=== PATIENT | male | born 1990 | race Caucasian/White ===

== ENCOUNTER 2016-08-11 12:45 | Emergency (ER) | payer MEDICAID ==
[~2016-08-11] VITALS: Ht 180.3 cm; Wt 83.9 kg
[2016-08-11] MEDS ORDERED: NKM (12:58)
[2016-08-11] MEDS: Ketorolac 60mg Inj IM ONE ×2 (13:34→13:57)
--- NOTE | 2016-08-11 13:37 | Emergency Room Report ---
History of Present Illness General Chief Complaint: Chest Pain Source: Patient Present Illness HPI 26 YOM with chest wall pain for 2 months. Pain only when "I push on my chest." Denies trauma. Denies pain on exertion, denies pain with breathing, cough, fever/chills. + smoker. Denies history of HTN, DM, HLD, drug use, or family history of CAD. Allergies: Coded Allergies: No Known Allergies (Unverified , 08/11/16) Patient History Past Medical History: none Past Surgical History: none Pertinent Family History: none Social History: Reports: smoking Immunizations: UTD Reviewed Nursing Documentation: PMH: Agreed, PSxH: Agreed Nursing Documentation-PMH Past Medical History: No History, Except For Hx Asthma: Yes Review of Systems All Other Systems: negative except mentioned in HPI Physical Exam Vital Signs Date Time Temp Pulse Resp B/P Pulse Ox O2 Delivery O2 Flow Rate FiO2 08/11/16 12:54 98.1 79 18 139/80 96 Room Air Sp02 EP Interpretation: reviewed, normal General Appearance: normal inspection, well appearing, no apparent distress, alert, GCS 15, non-toxic Head: normocephalic, atraumatic Eyes: bilateral eye EOMI, bilateral eye PERRL ENT: normal ENT inspection, hearing grossly normal, normal voice Neck: normal inspection, full range of motion, supple, no bony tend Respiratory: normal inspection, lungs clear, normal breath sounds, no respiratory distress, no retraction, no wheezing, other - Palpation of chest reproduces pain, chest symmetrical Cardiovascular #1: regular rate, rhythm, no edema Gastrointestinal: normal inspection, normal bowel sounds, non tender, soft, no guarding, no hernia Genitourinary: no CVA tenderness Musculoskeletal: normal inspection, back normal, normal range of motion, Daniel' s Sign negative Neurologic: normal inspection, alert, oriented x3, responsive, failure analysis technician III-XII nml as tested, motor strength/tone normal, speech normal Psychiatric: normal inspection, judgement/insight normal, mood/affect normal Skin: normal inspection Lymphatic: normal inspection Medical Decision Making Diagnostic Impression: Primary Impression: Chest pain Qualified Codes: R07.9 - Chest pain, unspecified ER Course ECG is NSR. No ischemia CXR negative for PTX, cardiomegaly, mass Improved with Toradol IM Low suspicion for AMI given duration, reproducibility, pain only palpation Low suspicion for PE as is PERC negative Likely MSK Rx Ibuprofen PMD followup DC home EKG Diagnostic Results Rate: normal Rhythm: NSR ST Segments: no acute changes ASA given to the pt in ED: No Rhythm Strip Diag. Results EP Interpretation: yes Rate: 66 Rhythm: NSR, no ectopy Chest X-Ray Diagnostic Results EP Interpretation: Yes Findings: no consolidation, no effusion, no pneumothorax, no acute cardiopulmonary disease Number of Views: 1 Last Vital Signs Date Time Temp Pulse Resp B/P Pulse Ox O2 Delivery O2 Flow Rate FiO2 08/11/16 13:21 69 16 Room Air 08/11/16 12:54 98.1 139/80 96 Status: improved Disposition: HOME, SELF-CARE Condition: Improved Patient Instructions: Nonspecific Chest Pain Additional Instructions: - You can try over the counter ibuprofen or tylenol for pain - Try applying heat or ice to area of pain to reduce spasm - Follow up with primary care doctor as needed CORAZON MONDRAGON M.D. Aug 11, 2016 13:37
[2016-08-11 14:45] VITALS: BP 133/77
--- NOTE | 2016-08-11 14:45 | Diagnostic Imaging Report ---
Indication: Chest pain Technique: One view of the chest Comparison: none Findings: Lungs and pleural spaces are clear. Heart size is normal. No evidence of pneumothorax Impression: No acute process
--- NOTE | 2016-08-16 18:28 | Cardiology Report ---
APPROVED REPORT EKG Measurement Heart [id number] CT 140P69 [id number] Normal sinus rhythm Possible Lateral infarct, age undetermined Abnormal ECG
== END 2016-08-11 14:45 | disposition home or self-care (01) ==
LOC: EMR 13:50
DX: R07.9 Chest pain, unspecified (principal); F17.200 Nicotine dependence, unspecified, uncomplicated; J45.909 Unspecified asthma, uncomplicated
CPT/HCPCS: 71010; 93005; 96372; 99283

== ENCOUNTER 2017-04-04 16:47 | Emergency (ER) | payer MEDICAID ==
[~2017-04-04] VITALS: Ht 172.7 cm; Wt 74.8 kg
[~2017-04-04 16:47] MED LIST: NKM
--- NOTE | 2017-04-04 17:05 | Emergency Room Report ---
History of Present Illness General Chief Complaint: Pain Source: Patient (Lien George) Present Illness HPI 27 YO male presents to the ED c/o Left ankle pain 3/10 in severity after kicking another persons foot. pt reports pain is exacerbated upon weight bearing /walking, reports some lateral tenderness, denies swelling at this time : states acute swelling at onset of injury that has resolved. Denies bruising, erythema or increased temperature to palpation, denies open wounds or bleeding. Denies numbness tingling or loss of sensation or gross motor movements of the extremities, incontinence of bowel or bladder. Denies CP, Palpitations, LOC, AMS , dizziness, Changes in Vision, Sensation, paresthesias, or a sudden severe headache. (Lien George) Allergies: Coded Allergies: No Known Allergies (Unverified , 08/11/16) Patient History Past Medical History: see triage record Past Surgical History: none Pertinent Family History: none Immunizations: UTD Reviewed Nursing Documentation: PMH: Agreed, PSxH: Agreed (Lien George) Nursing Documentation-PMH Hx Cardiac Problems: No Hx Hypertension: No Hx Pacemaker: No Hx Asthma: No Hx COPD: No Hx Diabetes: No Hx Cancer: No Hx Gastrointestinal Problems: No Hx Dialysis: No History Of Psychiatric Problem: No Hx Neurological Problems: No Hx Cerebrovascular Accident: No Hx Seizures: No (Lien George) Review of Systems All Other Systems: negative except mentioned in HPI (Lien George) Physical Exam Vital Signs Date Time Temp Pulse Resp B/P (MAP) Pulse Ox O2 Delivery O2 Flow Rate FiO2 04/04/17 16:50 98.8 82 18 138/64 97 Room Air Sp02 EP Interpretation: reviewed, normal General Appearance: no apparent distress, alert, GCS 15, non-toxic Head: normocephalic, atraumatic Eyes: bilateral eye normal inspection, bilateral eye PERRL ENT: hearing grossly normal, normal voice Neck: full range of motion Respiratory: lungs clear, normal breath sounds, speaking full sentences Cardiovascular #1: regular rate, rhythm, normal capillary refill Cardiovascular #2: 2+ dorsalis pedis (R), 2+ dorsalis pedis (L) Rectal: deferred Genitourinary: normal inspection, no CVA tenderness Musculoskeletal: back normal, normal range of motion, no calf tenderness, tender - lateral ttp to the left ankle, no swelling, no erythema, no bruises or obvious deformity, FROM , no instability noted, pt. is NVI. Neurologic: alert, oriented x3, responsive, motor strength/tone normal, sensory intact, speech normal Skin: normal color, no rash, warm/dry, well hydrated (Lien George) Medical Decision Making PA Attestation Dr. Franco is my supervising Physician whom patient management has been discussed with. (Lien George) Diagnostic Impression: Primary Impression: Left ankle sprain Qualified Codes: S93.402A - Sprain of unspecified ligament of left ankle, initial encounter ER Course 27 YO male presents to the ED c/o Left ankle pain 3/10 in severity after kicking another persons foot. pt reports pain is exacerbated upon weight bearing /walking, reports some lateral tenderness, denies swelling at this time : states acute swelling at onset of injury that has resolved. Denies bruising, erythema or increased temperature to palpation, denies open wounds or bleeding. Denies numbness tingling or loss of sensation or gross motor movements of the extremities, incontinence of bowel or bladder. Denies CP, Palpitations, LOC, AMS , dizziness, Changes in Vision, Sensation, paresthesias, or a sudden severe headache. Ddx considered but are not limited to Fracture, dislocation, contusion, Sprain/ Strain/Spasm just to name a few. Vital signs: are WNL, pt. is afebrile H&PE are most consistent with musculoskeletal injury will perform imaging to r/ o fractures/dislocations. ORDERS: - X-ray : Left Ankle: NAD. ED INTERVENTIONS: - Air Splint applied to the Left Ankle by technical assistance consultant. Pt. remains neurovascularly intact. --Patient is provided with crutches and instructed on their use DISCHARGE: At this time pt. is stable for d/c to home. Will provide printed patient care instructions, and any necessary prescriptions. Care plan and follow up instructions have been discussed with the patient prior to discharge. (Lien George.Anabelle) Other X-Ray Diagnostic Results Other X-Ray Diagnostic Results : X-Ray ordered: Left Ankle # of Views/Limited Vs Complete: 3 View Indication: Pain EP Interpretation: No PA Xray: Interpretation reviewed, by supervising MD, and agrees with findings. Interpretation: no dislocation, no soft tissue swelling, no fractures, nonspecific bowel gas Impression: No acute disease Electronically Signed by: Lien George PA-C (Lien George) Other X-Ray Diagnostic Results : Electronically Signed by: Sunita documentation reviewed by me and is accurate, Lucian Franco MD. (Lucian Franco M.D.) Last Vital Signs Date Time Temp Pulse Resp B/P (MAP) Pulse Ox O2 Delivery O2 Flow Rate FiO2 04/04/17 16:50 98.8 82 18 138/64 97 Room Air (Lien George) Disposition: HOME, SELF-CARE Condition: Stable Scripts Ibuprofen* (MOTRIN*) 600 Mg Tablet 600 MG ORAL THREE TIMES A DAY, #20 TAB 0 Refills Prov: Lien George 04/04/17 Patient Instructions: Ankle Sprain Additional Instructions: Take medications as directed. Follow up with a Primary Care Provider in 3-5 days, even if your symptoms have resolved. --Please review list of primary care clinics, if you do not already have a primary care provider Return sooner to ED if new symptoms occur, or current symptoms become worse. - Please note that this Emergency Department Report was dictated using [employer] cutter technology software, occasionally this can lead to erroneous entry secondary to interpretation by the dictation equipment. Lien George Apr 04, 2017 17:05 Lucian Franco M.D. Apr 06, 2017 11:06
[2017-04-04] MEDS ORDERED: IBUPROFEN600 MG ORAL (17:20)
[2017-04-04 17:40] VITALS: BP 141/83
--- NOTE | 2017-04-05 10:33 | Diagnostic Imaging Report ---
Indication: PAIN, status post fall Technique: 3 views of the left ankle Comparison: none Findings: No acute fractures. No dislocations. Joint spaces are preserved. Normal mineralization. No radiopaque foreign body. Impression: Negative This agrees with the preliminary interpretation provided by the emergency room physician
== END 2017-04-04 17:40 | disposition home or self-care (01) ==
LOC: MERGE 17:13 → EMR 17:13
DX: S93.402A Sprain of unspecified ligament of left ankle, initial encounter (principal); W51.XXXA Accidental striking against or bumped into by another person, initial encounter; Y92.89 Other specified places as the place of occurrence of the external cause
CPT/HCPCS: 99283

== ENCOUNTER 2019-06-03 21:45 | Emergency (ER) | payer MEDICAID, OTHER ==
[~2019-06-03] VITALS: Ht 180.3 cm; Wt 93.9 kg
[~2019-06-03 21:45] MED LIST changes: +IBUPROFEN600 MG ORAL
--- NOTE | 2019-06-03 21:59 | NUR ---
ED Nurse Note: Pt ambulated to ED from home, wanting a STD check, pt had unprotected sex 4-5 days ago, c/o yellowish discharge from penis as well as soreness and bumps at the tip of the penis as well as a sore throat. Pt is A&Ox4, VSS
[2019-06-03 22:00] VITALS: BP 140/89
--- NOTE | 2019-06-03 22:12 | Emergency Room Report ---
History of Present Illness General Chief Complaint: Male Urogenital Problems Source: Patient Present Illness HPI Is a 29-year-old male who presents after increased dysuria as well as urethral discharge. He had recent unprotected sexual intercourse. Reports of increased sore throat. Any other locations of discomfort. He denied any urinary hesitancy. Had not been having any hematuria. Denies any testicular pain or swelling. Had not been vomiting or having any fever. Patient states that he had unprotected sex approximately 10 days prior to onset of symptoms. He noticed increased yellow discharge. Allergies: Coded Allergies: No Known Allergies (Unverified , 08/11/16) Patient History Past Medical History: see triage record Reviewed Nursing Documentation: PMH: Agreed; PSxH: Agreed Nursing Documentation-PMH Hx Asthma: Yes Review of Systems All Other Systems: negative except mentioned in HPI Physical Exam Vital Signs Date Time Temp Pulse Resp B/P (MAP) Pulse Ox O2 Delivery O2 Flow Rate FiO2 06/03/19 21:53 98.4 82 16 140/89 (106) 98 General Appearance: well appearing, no apparent distress, alert, GCS 15 Head: normocephalic, atraumatic ENT: hearing grossly normal, normal voice Neck: full range of motion, supple Respiratory: normal inspection, no respiratory distress, speaking full sentences Cardiovascular #1: normal inspection Gastrointestinal: normal inspection Genitourinary: other - urethral swelling and discharge, circumcised Musculoskeletal: normal inspection, no calf tenderness Neurologic: alert, motor strength/tone normal, turbine mechanic III-XII nml as tested, oriented x3, normal gait Psychiatric: mood/affect normal Skin: no rash Medical Decision Making Diagnostic Impression: Primary Impression: Urethritis ER Course Patient presented for dysuria and penile discharge. Differential diagnosis include was not limited to urethritis, Stefan's syndrome, urinary tract infection among others. Patient has a benign exam and does not appear to require any imaging or laboratory testing at this time. Patient appears to have a sexual transmitted infection will be empirically treated for gonorrhea chlamydia. He was advised to have full patient STD testing with his primary care physician or Public health clinic. Patient is given Rocephin as well as doxycycline prescription. Patient is advised to return if any worsening condition or if any changes in status that are concerning. This report is dictated with [employer] punch box tender software which may occasionally lead to discrepancies related to use of this software. He was advised to follow-up with Last Vital Signs Date Time Temp Pulse Resp B/P (MAP) Pulse Ox O2 Delivery O2 Flow Rate FiO2 06/03/19 21:53 98.4 82 16 140/89 (106) 98 Status: improved Disposition: HOME, SELF-CARE Condition: Stable Agustin Young MD Jun 03, 2019 22:12
[2019-06-03] MEDS ORDERED: DOXYCYCLINE MO100 MG ORAL (22:13)
[2019-06-03] MEDS ORDERED: Lidocaine 1% MPF 10mg/ml 5ml INJ ONE (22:15)
[2019-06-03 22:45] VITALS: BP 140/89
--- NOTE | 2019-06-03 22:45 | NUR ---
ER DISCHARGE NOTE: Patient is cleared to be discharged per ERMD, pt is aox4, on room air, with stable vital signs. pt was given dc and prescription instructions, pt was able to verbalize understanding, pt id band removed. pt is able to ambulate with steady gait. pt took all belongings. IM shot tolerated well
== END 2019-06-03 22:45 | disposition home or self-care (01) ==
LOC: EMR 22:08
DX: N34.2 Other urethritis (principal); J45.909 Unspecified asthma, uncomplicated
CPT/HCPCS: 96372; 99283; J0696

== ENCOUNTER 2019-11-29 14:07 | Emergency (ER) | payer OTHER ==
[~2019-11-29] VITALS: Ht 180.3 cm; Wt 81.6 kg
[~2019-11-29 14:07] MED LIST changes: +DOXYCYCLINE MO100 MG ORAL
--- NOTE | 2019-11-29 14:20 | NUR ---
ED Nurse Note: Pt ambulated to ED d/t sore throat started today at 1100. Pt also complains of having dry cough for a few days. Pt also complains of tenderness at the tip of his penis. VSS, on RA, afebrile on triage. Placed at the tent.
[2019-11-29 14:21] VITALS: BP 141/86
--- NOTE | 2019-11-29 14:38 | NUR ---
ED Nurse Note: ERPA at bedside.
[2019-11-29] MEDS ORDERED: Azithromycin 250mg tab ORAL ONE (15:00)
[2019-11-29] MEDS ORDERED: Lidocaine 1% MPF 10mg/ml 5ml INJ ONE (15:00)
--- NOTE | 2019-11-29 15:16 | Emergency Room Report ---
History of Present Illness General Chief Complaint: Sore Throat Source: Patient Present Illness HPI 29-year-old male with no past medical history presents with mild sore throat and dry cough onset last night. Denies any difficulty swallowing, fever, shortness of breath, diarrhea, constipation. He denies any exposure to COVID positive individuals. 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 Patient also reports that he is having some mild irritation to the tip of the penis for 2 days. He had unprotected sex a few days ago with a new female partner. He denies any dysuria, penile discharge, fever, sores, testicular pain. 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 COVID-19 Screening: Negative COVID-19 COVID-19 Testing Source: oropharynx Patient History Past Medical History: see triage record Reviewed Nursing Documentation: PMH: Agreed; PSxH: Agreed Nursing Documentation-PMH Past Medical History: No Stated History Hx Asthma: Yes Review of Systems All Other Systems: negative except mentioned in HPI Physical Exam Vital Signs Date Time Temp Pulse Resp B/P (MAP) Pulse Ox O2 Delivery O2 Flow Rate FiO2 11/29/19 14:20 98.1 110 19 141/86 (104) 97 Room Air Sp02 EP Interpretation: reviewed, normal General Appearance: normal inspection, well appearing, no apparent distress, alert Head: normocephalic, atraumatic ENT: normal pharynx, normal voice, uvula midline Neck: supple, no meningismus Respiratory: lungs clear, normal breath sounds, no respiratory distress Cardiovascular #1: regular rate, rhythm Genitourinary: normal inspection, penis normal, deferred - No abnormalities noted to the penis. No erythema, sore, tenderness, discharge. Medical Decision Making PA Attestation Dr. Cabrera is my supervising physician whom patient management and care has been discussed with. Diagnostic Impression: Primary Impression: Cough Additional Impressions: Screen for STD (sexually transmitted disease) Sore throat ER Course Pt. presents to the ED c/o mild sore throat and dry cough onset last night. No other symptoms or cold exposure. Also complaining of irritation to the tip of the penis for 2 days. Had unprotected sex a few days ago. No dysuria or penile discharge. Ddx considered but are not limited to COVID-19, other viral syndrome, strep pharyngitis, pneumonia, bronchitis, asthma, STDs. Vital signs: are WNL, pt. is afebrile H&PE are most consistent with viral syndrome. ORDERS: Chlamydia and gonorrhea ordered. ED INTERVENTIONS: Treated with Rocephin and azithromycin for chlamydia gonorrhea. DISCHARGE: At this time pt. is stable for d/c to home. Will provide printed patient care instructions, and any necessary prescriptions. Advised to follow up outpatient in 1-2 days. Care plan and follow up instructions have been discussed with the patient prior to discharge. Well-appearing, nontoxic, afebrile, no hypoxia. Lungs are clear. Advised patient that he may possibly have COVID-19 and that he should self isolate at home for 2 weeks and redirected to [facility] for COVID testing. Patient treated for chlamydia and gonorrhea with 250 mg IM Rocephin and 1 g p.o. azithromycin and tested for chlamydia and gonorrhea. Last Vital Signs Date Time Temp Pulse Resp B/P (MAP) Pulse Ox O2 Delivery O2 Flow Rate FiO2 11/29/19 14:21 98.1 19 141/86 97 Room Air 11/29/19 14:20 110 Disposition: HOME, SELF-CARE Condition: Stable Patient Instructions: Cough, Adult, [id number], Sexually Transmitted Disease , [id number] Additional Instructions: Take medications as directed. Do not expect a call regarding your STD test results. You can go to medical records in 4-5 days for results. Make an appointment with [facility] if you would like COVID testing. Since you are displaying cough and sore throat, you should isolate at home for 2 weeks or for at least 3 days after you are still having symptoms. Follow up with a Primary Care Provider in 1-2 days, even if your symptoms have resolved. --Please review list of primary care clinics, if you do not already have a primary care provider Return to the emergency department sooner if new symptoms occur, or current symptoms become worse. - Please note that this Emergency Department Report was dictated using [employer] department chair technology software, occasionally this can lead to erroneous entry secondary to interpretation by the dictation equipment. Dagmar Archuleta 8, 2020 15:16
[2019-11-29 15:17] VITALS: BP 138/84
--- NOTE | 2019-11-29 15:17 | NUR ---
ER DISCHARGE NOTE: Patient is cleared to be discharged per ERPA, pt is aox4, on room air, with stable vital signs. pt was given dc and follow-up instructions, pt was able to verbalize understanding, pt id band removed. pt is able to ambulate with steady gait. pt took all belongings.
== END 2019-11-29 15:17 | disposition home or self-care (01) ==
LOC: EMR 14:48
DX: R05 Cough (principal); R07.0 Pain in throat; Z20.2 Contact with and (suspected) exposure to infections with a predominantly sexual mode of transmission; R21 Rash and other nonspecific skin eruption
CPT/HCPCS: 87491; 87590; 96372; 96374; 99284; J0696